=== PATIENT | male | born 1985 | race Two or more races ===

== ENCOUNTER 2019-01-13 20:59 | Emergency (ER) | payer OTHER ==
[~2019-01-13] VITALS: Ht 190.5 cm; Wt 104.3 kg
[2019-01-13] MEDS ORDERED: ACETAMINOPHEN ES 500 MG TABLET PO ONE (22:00)
[2019-01-13] MEDS ORDERED: KETOROLAC TROMETHAMINE INJ 30 MG/ML VIAL IM ONE (22:00)
[2019-01-13] MEDS ORDERED: ACETAMINOPHEN ES 500 MG TABLET ONE (22:15)
[2019-01-13] MEDS ORDERED: KETOROLAC TROMETHAMINE INJ 30 MG/ML VIAL ONE (22:15)
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
--- NOTE | 2019-01-13 22:51 | NUR ---
Patient discharged to home in stable condition. Written and verbal after care instructions given. Patient verbalizes understanding of instruction. ambulatory with a steady gait noted. Crutches dispensed. Pt instructed on proper use of crutches. Patient able to demonstrate correct use of crutches.
[2019-01-13 22:53] VITALS: BP 127/69
== END 2019-01-13 22:56 | disposition home or self-care (01) ==
LOC: ER 21:12
DX: S39.012A Strain of muscle, fascia and tendon of lower back, initial encounter (principal); M25.571 Pain in right ankle and joints of right foot; F41.9 Anxiety disorder, unspecified; F32.9 Major depressive disorder, single episode, unspecified; V49.49XA Driver injured in collision with other motor vehicles in traffic accident, initial encounter; Y93.89 Activity, other specified; Y92.413 State road as the place of occurrence of the external cause; Y99.8 Other external cause status
CPT/HCPCS: 73610; 96372; 99283; J1885